=== PATIENT | female | born 1950 | race Hispanic/Latino ===

== ENCOUNTER 2018-06-04 11:27 | Emergency (ER) | payer MEDICARE ==
[~2018-06-04] VITALS: Ht 160 cm; Wt 83.1 kg
[2018-06-04 12:44] VITALS: BP 144/81
[2018-06-04] MEDS ORDERED: HYDROCODONE/APAP 5MG-325MG TAB PO ONE (13:15)
== END 2018-06-04 13:36 | disposition home or self-care (01) ==
LOC: FSED 11:27
DX: S42.492A Other displaced fracture of lower end of left humerus, initial encounter for closed fracture (principal); S00.511A Abrasion of lip, initial encounter; M25.562 Pain in left knee; W01.0XXA Fall on same level from slipping, tripping and stumbling without subsequent striking against object, initial encounter; Y93.01 Activity, walking, marching and hiking; I10 Essential (primary) hypertension; E78.5 Hyperlipidemia, unspecified
CPT/HCPCS: 99284

== ENCOUNTER → 2018-06-17 | Day surgery (SDC) | payer MEDICARE ==
[2018-06-16 13:52] LABS: BASOPHILS % 0.5 % (0.0-1.0); EOSINOPHILS # (AUTO) 0.1 (0.0-0.4); EOSINOPHILS % 1.5 % (0.0-6.0); HEMATOCRIT 38.3 % (34.2-44.1); HEMOGLOBIN 13.1 g/dL (12.0-16.0); LYMPHOCYTES # (AUTO) 2.3 (1.0-3.2); LYMPHOCYTES % 28.5 % (18.0-39.1); MEAN CORPUSCULAR HEMOGLOBIN 30.3 pg (28-32); MEAN CORPUSCULAR HGB CONC 34.2 g/dL (31-35); MEAN CORPUSCULAR VOLUME 88.7 fL (81-99); MONOCYTES # (AUTO) 0.7 (0.2-0.8); MONOCYTES % 8.4 % (4.4-11.3); NEUTROPHILS % 60.9 % (38.7-80.0); PLATELET COUNT 148 x10e3/uL (140-360); RED BLOOD COUNT 4.32 x10e6/uL (3.6-5.1); RED CELL DISTRIBUTION WIDTH 12.6 % (11.7-14.4)
[2018-06-16 14:11] LABS: ANION GAP 12.5 mmol/L (8-16); CALCIUM 10.2 mg/dL (8.4-10.2); CREATININE, SERUM 0.96 mg/dL (0.57-1.11); POTASSIUM 4.5 mmol/L (3.5-5.1)
--- NOTE | 2018-06-16 14:29 | Diagnostic Imaging Report ---
PROCEDURE: Frontal and lateral views of the chest. COMPARISON: None. INDICATIONS: preop surgery FINDINGS: Lines/tubes: None. Lungs: The lungs are well inflated and clear. There is no evidence of pneumonia or pulmonary edema. Pleura: There is no pleural effusion or pneumothorax. Heart and mediastinum: The heart and the mediastinum are normal. Bones: No acute bony abnormality. IMPRESSION: 1. No acute cardiopulmonary disease. Dictated by: Obi Leach M.D. on 06/16/2018 at 14:34 Electronically approved by: Obi Leach M.D. on 06/16/2018 at 14:34
[~2018-06-17] MED LIST: BACITRACIN 50,000 UNIT VIAL ONE; BETIMOL5 M1 OP; BUPIVACAINE 0.5%/EPI 30 ML SDV INJ ONE; BUPIVACAINE HCL 0.5% INJ 30 ML VIAL INJ ONE; CEFAZOLIN SOD 1 GM VIAL ONE; DEXAMETHASONE SOD PHOS INJ 4 MG/ML VIAL ONE; FENTANYL CITRATE/PF 100MCG/2 ML INJ ONE; GLYCOPYRROLATE INJ 1MG/ 5 ML SYR ONE; LATANOPROST2.5 ML OP; LIDOCAINE 2%/ EPINEPHRINE 20ML MDV ONE; LIDOCAINE HCL 2% LOCAL INJ 5 ML SDV VIAL INJ ONE; LISINOPRIL-HCT1 EAC1 PO; MIDAZOLAM HCL 2 MG/2 ML VIAL ONE; MUPIROCIN 2% OINT 22 GM TUBE ONE; NEOSTIGMINE 5 MG/5ML SYR ONE; OMEPRAZOLE40 MG PO; ONDANSETRON HCL INJ 2 MG/ML VIAL ONE; PRAVASTATIN SOD80 MG PO; PROPOFOL IV EMULSION 10 MG/ML 20 ML VIAL ONE; ROCURONIUM BROMIDE 10 MG/ML 5ML VIAL ONE; ROPIVACAINE 0.5% 5 MG/ML 30 ML SDV ONE; SEVOFLURANE INHAL SOLN 250 ML PEN BTL ONE
--- NOTE | 2018-06-17 12:26 | Diagnostic Imaging Report ---
PROCEDURE:X-RAY LEFT ELBOW, TWO VIEWS COMPARISON:Outside hospital left elbow radiographs 06/04/18. INDICATIONS:POST OPERATIVE LEFT ELBOW SURGERY FINDINGS: Exam somewhat limited by portable technique. Post surgical changes status post interval fixation of the lateral epicondyle fracture with three threaded screws. Subcutaneous air from recent surgery is present. Alignment appears anatomic. No additional fractures identified. On the lateral projection, prior screw tract is noted. CONCLUSION: Post surgical changes status post interval fixation of lateral epicondyle fracture with temple of anatomic alignment. Dictated by: SANTY JAY M.D. on 06/17/2018 at 12:31 Electronically approved by: SANTY JAY M.D. on 06/17/2018 at 12:31
--- NOTE | 2018-06-18 14:01 | Operative Report ---
DATE OF PROCEDURE: June 17, 2018 MANAGER [employer] RELATIONS: Lance Alaniz PA-C The patient was brought to the operating room for induction of anesthesia. Throughout this case, my PA's assistance was necessary for retraction of soft tissue and positioning of the extremity. This allows for efficient and technically successful execution of the operation and is considered medically necessary. PREOPERATIVE DIAGNOSIS: Left elbow capitellar fracture. POSTOPERATIVE DIAGNOSIS: Left elbow capitellar fracture. PROCEDURE: Open reduction and internal fixation, left elbow capitellum. INDICATIONS: The patient is a 67-year-old lady with a completely displaced left elbow capitellar fracture. The findings and options have been discussed. She had a slightly delayed presentation and then wanted to obtain a 2nd opinion. We now plan on open reduction and internal fixation. The risks and benefits and expectations of some limitation of motion going forward have been explained. She states she understands and wishes to proceed. DESCRIPTION OF PROCEDURE: The patient was brought to the operating room and placed under general anesthetic. She received prophylactic antibiotics in the holding area. She was positioned in the floppy right lateral decubitus position. Her left upper extremity was prepped and draped in a sterile manner. A preoperative time out was performed. A tourniquet placed on the upper arm was inflated to 250 mmHg and after exsanguinating the arm a curvilinear incision for a lateral approach to the left elbow was made. Hemostasis was obtained with electrocautery. Abundant subcutaneous fatty tissue was encountered. The extensor origin was elevated off of the lateral epicondyle. The lateral aspect of the joint was exposed. A closed reduction had been performed and the capitellum was surprisingly adjacent to its anatomic position. This was carefully reduced and fixed with 3 cannulated headless compression screws. Intraoperative x-rays confirmed anatomic reduction and good positioning of the hardware. Minimal stripping of soft tissue of the remaining capitellar attachments was performed. The wound and the elbow tell joint were thoroughly irrigated. The lateral structures were closed with 0 Vicryl. The skin was closed subcuticular Vicryl and nylon. A posterior splint was applied. The patient was extubated and transported to the recovery room in stable condition. Prior to leaving the operating room, a lateral x-ray was taken which showed reduction of the radial capitellar joint. Job#: [id number]
== END | disposition home or self-care (01) ==
LOC: OR 06:47
PROVIDERS: ATTEND Specialist
DX: S42.452A Displaced fracture of lateral condyle of left humerus, initial encounter for closed fracture (principal); E78.00 Pure hypercholesterolemia, unspecified; R03.0 Elevated blood-pressure reading, without diagnosis of hypertension; W18.39XA Other fall on same level, initial encounter; Y93.01 Activity, walking, marching and hiking; Y92.096 Garden or yard of other non-institutional residence as the place of occurrence of the external cause; Z01.810 Encounter for preprocedural cardiovascular examination; Z01.812 Encounter for preprocedural laboratory examination; Z01.818 Encounter for other preprocedural examination; Z68.32 Body mass index [BMI] 32.0-32.9, adult
CPT/HCPCS: 24586; 36415; 71046; 73070; 76001; 80048; 85025; 93005; J0690; J1100; J2001 ×2; J2250; J2405; J2795; J3490

== ENCOUNTER → 2020-01-28 | Outpatient (CLI) | payer MEDICARE ==
[~2020-01-28] MED LIST changes: -BACITRACIN 50,000 UNIT VIAL ONE; -BUPIVACAINE 0.5%/EPI 30 ML SDV INJ ONE; -BUPIVACAINE HCL 0.5% INJ 30 ML VIAL INJ ONE; -CEFAZOLIN SOD 1 GM VIAL ONE; -DEXAMETHASONE SOD PHOS INJ 4 MG/ML VIAL ONE; +DIGOXIN INJ 0.25 MG/ML 2 ML AMP IV ONE; +DIGOXIN INJ 0.25 MG/ML 2 ML AMP IV PRN; -FENTANYL CITRATE/PF 100MCG/2 ML INJ ONE; -GLYCOPYRROLATE INJ 1MG/ 5 ML SYR ONE; -LIDOCAINE 2%/ EPINEPHRINE 20ML MDV ONE; -LIDOCAINE HCL 2% LOCAL INJ 5 ML SDV VIAL INJ ONE; +METOPROLOL TARTRATE INJ 1 MG/ML VIAL IV ONE; +METOPROLOL TARTRATE INJ 1 MG/ML VIAL ONE; -MIDAZOLAM HCL 2 MG/2 ML VIAL ONE; -MUPIROCIN 2% OINT 22 GM TUBE ONE; -NEOSTIGMINE 5 MG/5ML SYR ONE; -ONDANSETRON HCL INJ 2 MG/ML VIAL ONE; -PROPOFOL IV EMULSION 10 MG/ML 20 ML VIAL ONE; +REGADENOSON 0.4 MG/5 ML SYR IV ONE; -ROCURONIUM BROMIDE 10 MG/ML 5ML VIAL ONE; -ROPIVACAINE 0.5% 5 MG/ML 30 ML SDV ONE; -SEVOFLURANE INHAL SOLN 250 ML PEN BTL ONE
--- NOTE | 2020-01-28 17:33 | Myoview Stress Test ---
DATE OF STUDY: 01/28/2020 07:43:00 Stress Test - Treadmill ONLY PROCEDURE TITLE: Rest/stress single isotope SPECT imaging with pharmacologic stress and gated SPECT imaging. INDICATION: Chest pain. PROCEDURE IN DETAIL: The patient performed treadmill exercise using a Robin protocol exercising for 5 minutes and 1 seconds to stage I and completing estimated workload of 4.6 metabolic equivalents (METs). The heart rate was 66 beats per minute at rest and increased to 216 beats per minute at peak exercise, which was 143% of the maximum predicted heart rate. The resting blood pressure was 137/86 mmHg and increased to 147/101 mmHg, which is a normal response. The resting electrocardiogram demonstrated normal sinus rhythm. There were no ST-segment changes suggestive of myocardial ischemia; however, the patient developed atrial fibrillation with rapid ventricular response during exercise for which the patient was given a total of 30 mg IV metoprolol as well as 500 mcg of IV digoxin with improvement in heart rate. Next, myocardial perfusion imaging was performed at rest following the injection of 11 mCi of tetrofosmin. At peak pharmacologic effect, the patient was injected with 33 mCi of tetrofosmin. Gated post-stress tomographic imaging was performed. FINDINGS: The overall quality of study is fair. Left ventricular cavity is noted to be normal size on the rest and stress studies. SPECT images demonstrate homogeneous tracer distribution throughout the myocardium. Gated SPECT imaging reveals normal myocardial thickening and wall motion. The left ventricular ejection fraction was calculated to be 58%. IMPRESSION: Myocardial perfusion imaging is normal. Overall left ventricular systolic function is normal without regional wall motion abnormalities. Carmel Almeida MD ABS/MODL /[id number]
== END ==
LOC: NM 07:30
PROVIDERS: ATTEND Internal Medicine Cardiovascular Disease
DX: R07.9 Chest pain, unspecified (principal)
CPT/HCPCS: 78452; 93017; A9502

== ENCOUNTER → 2021-01-30 | Day surgery (SDC) | payer MEDICARE ==
[2021-01-25 10:19] LABS: EOSINOPHILS # (AUTO) 0.1 (0.0-0.4); EOSINOPHILS % 1.9 % (0.0-6.0); HEMATOCRIT 39.5 % (34.2-44.1); HEMOGLOBIN 12.8 g/dL (12.0-16.0); LYMPHOCYTES # (AUTO) 1.8 (1.0-3.2); LYMPHOCYTES % 43.6 % (18.0-39.1); MEAN CORPUSCULAR HEMOGLOBIN 29.5 pg (28-32); MEAN CORPUSCULAR HGB CONC 32.4 g/dL (31-35); MONOCYTES # (AUTO) 0.4 (0.2-0.8); MONOCYTES % 10.5 % (4.4-11.3); NEUTROPHILS # (AUTO) 1.8 (2.1-6.9); PLATELET COUNT 217 x10e3/uL (140-360); RED BLOOD COUNT 4.34 x10e6/uL (3.6-5.1); RED CELL DISTRIBUTION WIDTH 13.2 % (11.7-14.4)
[2021-01-25 10:49] LABS: ALBUMIN/GLOBULIN RATIO 1.1 (0.8-2.0); ANION GAP 14.7 mmol/L (8-16); CALCIUM 9.5 mg/dL (8.4-10.2); CREATININE, SERUM 1.26 mg/dL (0.57-1.11); POTASSIUM 3.7 mmol/L (3.5-5.1)
[~2021-01-30] VITALS: Ht 160 cm; Wt 86.2 kg
[~2021-01-30] MED LIST changes: +AMIODARONE HCL200 MG PO; +BENZOCAINE 20% SPR 60 ML CAN ONE; +BRIMONIDINE TART5 ML OS; +CRESTOR40 MG PO; -DIGOXIN INJ 0.25 MG/ML 2 ML AMP IV ONE; -DIGOXIN INJ 0.25 MG/ML 2 ML AMP IV PRN; +ELIQUIS5 MG PO; +FENTANYL CITRATE/PF 100MCG/2 ML INJ ONE; +METOPROLOL SUCC25 MG PO; -METOPROLOL TARTRATE INJ 1 MG/ML VIAL IV ONE; -METOPROLOL TARTRATE INJ 1 MG/ML VIAL ONE; +MIDAZOLAM HCL 2 MG/2 ML VIAL ONE; +PROPOFOL IV EMULSION 10 MG/ML 20 ML VIAL ONE; -REGADENOSON 0.4 MG/5 ML SYR IV ONE; +SODIUM CHLORIDE 0.9% 1000ML 1,000 ML ONE
[2021-01-30 09:31] VITALS: BP 111/64
[2021-01-30 09:45] VITALS: BP 113/60
[2021-01-30 10:00] VITALS: BP 108/76
== END | disposition home or self-care (01) ==
LOC: CATH LAB 07:03
PROVIDERS: ATTEND Internal Medicine Cardiovascular Disease
DX: I48.0 Paroxysmal atrial fibrillation (principal); I49.3 Ventricular premature depolarization; E78.00 Pure hypercholesterolemia, unspecified; R00.2 Palpitations; K21.9 Gastro-esophageal reflux disease without esophagitis; I12.9 Hypertensive chronic kidney disease with stage 1 through stage 4 chronic kidney disease, or unspecified chronic kidney disease; N18.9 Chronic kidney disease, unspecified; Z01.812 Encounter for preprocedural laboratory examination; Z20.822 Contact with and (suspected) exposure to COVID-19; Z79.02 Long term (current) use of antithrombotics/antiplatelets; Z79.82 Long term (current) use of aspirin; Z68.35 Body mass index [BMI] 35.0-35.9, adult; Z95.0 Presence of cardiac pacemaker; Z82.49 Family history of ischemic heart disease and other diseases of the circulatory system
CPT/HCPCS: 36415; 80053; 85025; 93320; 93325; J2250; J2704; J3010; J7030; U0002; 93307; 93312

== ENCOUNTER 2023-04-08 05:37 | Day surgery (SDC) | payer MEDICARE ==
[2023-04-05 10:03] LABS: BASOPHILS % 0.5 % (0.0-1.0); EOSINOPHILS # (AUTO) 0.1 (0.0-0.4); EOSINOPHILS % 1.6 % (0.0-6.0); HEMATOCRIT 38.6 % (34.2-44.1); HEMOGLOBIN 12.7 g/dL (12.0-16.0); LYMPHOCYTES % 30.8 % (18.0-39.1); MEAN CORPUSCULAR HEMOGLOBIN 29.7 pg (28-32); MEAN CORPUSCULAR HGB CONC 32.9 g/dL (31-35); MEAN CORPUSCULAR VOLUME 90.4 fL (81-99); MONOCYTES # (AUTO) 0.6 (0.2-0.8); MONOCYTES % 9.6 % (4.4-11.3); NEUTROPHILS # (AUTO) 3.6 (2.1-6.9); NEUTROPHILS % 57.2 % (38.7-80.0); PLATELET COUNT 195 x10e3/uL (140-360); RED BLOOD COUNT 4.27 x10e6/uL (3.6-5.1); RED CELL DISTRIBUTION WIDTH 13.3 % (11.7-14.4)
[2023-04-05 10:22] LABS: ANION GAP 15.3 mmol/L (8-16); CALCIUM 9.4 mg/dL (8.4-10.2); CREATININE, SERUM 0.97 mg/dL (0.57-1.11); POTASSIUM 3.3 mmol/L (3.5-5.1)
[~2023-04-08 05:37] MED LIST changes: -BENZOCAINE 20% SPR 60 ML CAN ONE; -FENTANYL CITRATE/PF 100MCG/2 ML INJ ONE; -MIDAZOLAM HCL 2 MG/2 ML VIAL ONE; +OLMESARTAN-HCT1 EACH PO; -PROPOFOL IV EMULSION 10 MG/ML 20 ML VIAL ONE; -SODIUM CHLORIDE 0.9% 1000ML 1,000 ML ONE
[2023-04-08] MEDS ORDERED: CELECOXIB 200 MG CAP ONE (06:11)
[2023-04-08] MEDS ORDERED: GABAPENTIN 300 MG CAP ONE (06:12)
[2023-04-08] MEDS ORDERED: LACTATED RINGER'S 1,000 ML ONE (06:12)
[2023-04-08] MEDS ORDERED: CEFAZOLIN SODIUM 2 GM ONE (06:12)
[2023-04-08] MEDS ORDERED: DEXAMETHASONE SOD PHOS 10 MG/1 ML VIAL ONE (06:12)
[2023-04-08] MEDS ORDERED: SODIUM CHLORIDE 0.9% 250ML 250 ML ONE (06:16)
[2023-04-08] MEDS ORDERED: Vancomycin IV 1,000 MG ONE (06:16)
[2023-04-08] MEDS ORDERED: TRANEXAMIC ACID 20 ML ONE (06:16)
[2023-04-08] MEDS ORDERED: Vancomycin IV 500 MG ONE (06:29)
[2023-04-08] MEDS ORDERED: ROPIVACAINE 246.25 MG, EPINEPHRINE HCL 1:1000 1ML 0.5 MG, CLONIDINE HCL 0.08 MG, KETORO... INJ ONE ×5 (07:30)
[2023-04-08] MEDS ORDERED: HYDROMORPHONE 1MG/1ML INJ ONE (07:40)
[2023-04-08] MEDS ORDERED: DIPHENHYDRAMINE HCL INJ 50 MG/ML VIAL IV PRN (08:15)
[2023-04-08] MEDS ORDERED: ACETAMINOPHEN 650 MG SUPP PR PRN (08:15)
[2023-04-08] MEDS ORDERED: HYDROCODONE/APAP 5MG-325MG TAB PO PRN (08:15)
[2023-04-08] MEDS ORDERED: ONDANSETRON HCL INJ 2MG/ML 2ML 2 MG/ML VIAL IV PRN (08:15)
[2023-04-08] MEDS ORDERED: DOCUSATE SODIUM 100 MG CAP PO PRN (08:15)
[2023-04-08] MEDS ORDERED: HYDROCODONE/APAP 7.5MG-325MG 1 EA TAB PO PRN (08:15)
[2023-04-08] MEDS ORDERED: SODIUM CHLORIDE 0.9% 1000ML 1,000 ML IV SCH (08:15)
[2023-04-08 08:25] VITALS: TEMP 98.8
[2023-04-08] MEDS ORDERED: CELECOXIB 100 MG CAP PO SCH (09:00)
[2023-04-08 09:50] VITALS: BP 112/48; PULSE 60; RESP 18; O2SAT 97
[2023-04-08] MEDS ORDERED: HYDROCODON-ACE1 EA12 PO (11:37)
[2023-04-08] MEDS ORDERED: MIDAZOLAM HCL 2 MG/2 ML VIAL ONE (12:18)
[2023-04-08] MEDS ORDERED: FENTANYL CITRATE/PF 100MCG/2 ML INJ ONE (12:18)
[2023-04-08] MEDS ORDERED: ROPIVACAINE 0.5% 5 MG/ML 30 ML SDV ONE (12:57)
[2023-04-08] MEDS ORDERED: DEXAMETHASONE SOD PHOS INJ 4 MG/ML SDV ONE (13:56)
[2023-04-08] MEDS ORDERED: EPHEDRINE SULFATE INJ 50 MG/ML VIAL ONE (13:56)
[2023-04-08] MEDS ORDERED: LIDOCAINE HCL 2% LOCAL INJ 5 ML SDV VIAL INJ ONE (13:56)
[2023-04-08] MEDS ORDERED: SEVOFLURANE INHAL SOLN 250 ML PEN BTL ONE (13:56)
[2023-04-08] MEDS ORDERED: POVIDONE IODINE 0.05% 0.05 % ML PO ONE (13:56)
[2023-04-08] MEDS ORDERED: ONDANSETRON HCL INJ 2MG/ML 2ML 2 MG/ML VIAL ONE (13:56)
[2023-04-08] MEDS ORDERED: PROPOFOL IV EMULSION 10 MG/ML 20 ML VIAL ONE (13:56)
[2023-04-09] MEDS ORDERED: ACETAMINOPHEN 1000 MG/100 ML IV PRN (08:15)
== END 2023-04-08 12:15 | disposition home health service (06) ==
LOC: OR 05:37
PROVIDERS: ATTEND Specialist
DX: M17.12 Unilateral primary osteoarthritis, left knee (principal); I10 Essential (primary) hypertension; I51.9 Heart disease, unspecified; I48.91 Unspecified atrial fibrillation; K21.9 Gastro-esophageal reflux disease without esophagitis; Z01.810 Encounter for preprocedural cardiovascular examination; Z01.812 Encounter for preprocedural laboratory examination; Z01.818 Encounter for other preprocedural examination; Z79.02 Long term (current) use of antithrombotics/antiplatelets; Z79.899 Other long term (current) drug therapy; Z95.0 Presence of cardiac pacemaker
CPT/HCPCS: 27447; 36415; 71046; 73560; 80048; 85025; 86850; 86900; 86920; 93005; 97110; 97116; 97161; C1713; J0171; J1100 ×2; J1170; J1885; J2001; J2405; J2704; J2795; J3370; J7050; J7121; J2250

== ENCOUNTER 2023-12-16 05:43 | Observation (INO) | payer MEDICARE ==
[2023-12-13 11:34] LABS: BASOPHILS % 0.3 % (0.0-1.0); EOSINOPHILS # (AUTO) 0.1 (0.0-0.4); HEMATOCRIT 38.4 % (34.2-44.1); HEMOGLOBIN 12.4 g/dL (12.0-16.0); LYMPHOCYTES # (AUTO) 2.1 (1.0-3.2); LYMPHOCYTES % 35.6 % (18.0-39.1); MEAN CORPUSCULAR HEMOGLOBIN 29.5 pg (28-32); MEAN CORPUSCULAR HGB CONC 32.3 g/dL (31-35); MEAN CORPUSCULAR VOLUME 91.2 fL (81-99); MONOCYTES # (AUTO) 0.6 (0.2-0.8); MONOCYTES % 10.6 % (4.4-11.3); NEUTROPHILS % 52.3 % (38.7-80.0); PLATELET COUNT 219 x10e3/uL (140-360); RED BLOOD COUNT 4.21 x10e6/uL (3.6-5.1); RED CELL DISTRIBUTION WIDTH 13.3 % (11.7-14.4); WHITE BLOOD COUNT 5.76 x10e3/uL (4.8-10.8)
[2023-12-13 11:56] LABS: ANION GAP 12.8 mmol/L (8-16); CALCIUM 9.9 mg/dL (8.4-10.2); CREATININE, SERUM 1.1 mg/dL (0.57-1.11); POTASSIUM 3.8 mmol/L (3.5-5.1)
[~2023-12-16 05:43] MED LIST changes: +HYDROCODON-ACE1 EA12 PO; +TYLENOL ARTHRITIS PO
[2023-12-16] MEDS ORDERED: LACTATED RINGER'S 1,000 ML ONE (05:58)
[2023-12-16] MEDS ORDERED: GABAPENTIN 300 MG CAP ONE (05:58)
[2023-12-16] MEDS ORDERED: CELECOXIB 200 MG CAP ONE (05:58)
[2023-12-16] MEDS ORDERED: CEFAZOLIN SODIUM 2 GM ONE (05:58)
[2023-12-16] MEDS ORDERED: DEXAMETHASONE SOD PHOS 10 MG/1 ML VIAL ONE (05:58)
[2023-12-16] MEDS ORDERED: SODIUM CHLORIDE 0.9% 500ML 500 ML ONE (06:25)
[2023-12-16] MEDS ORDERED: Vancomycin IV 1,000 MG ONE (06:25)
[2023-12-16] MEDS ORDERED: TRANEXAMIC ACID 20 ML ONE (06:26)
[2023-12-16] MEDS ORDERED: ROPIVACAINE 246.25 MG, EPINEPHRINE HCL 1:1000 1ML 0.5 MG, CLONIDINE HCL 0.08 MG, KETORO... INJ ONE ×5 (08:00)
[2023-12-16] MEDS ORDERED: DIPHENHYDRAMINE HCL INJ 50 MG/ML VIAL IV PRN (08:30)
[2023-12-16] MEDS ORDERED: ONDANSETRON HCL INJ 2MG/ML 2ML 2 MG/ML VIAL IV PRN (08:30)
[2023-12-16] MEDS ORDERED: HYDROCODONE/APAP 5MG-325MG TAB PO PRN (08:30)
[2023-12-16] MEDS ORDERED: SODIUM CHLORIDE 0.9% 1000ML 1,000 ML IV SCH (08:30)
[2023-12-16] MEDS ORDERED: DOCUSATE SODIUM 100 MG CAP PO PRN (08:30)
[2023-12-16] MEDS ORDERED: HYDROCODONE/APAP 7.5MG-325MG 1 EA TAB PO PRN (08:30)
[2023-12-16] MEDS ORDERED: CELECOXIB 100 MG CAP PO SCH (09:00)
[2023-12-16] MEDS: FENTANYL CITRATE/PF 100MCG/2 ML INJ ONE ×4 (09:17→09:32)
[2023-12-16 10:50] VITALS: BP 129/62; PULSE 63; RESP 15; O2SAT 99
[2023-12-16] MEDS ORDERED: HYDROCODONE/APAP 7.5MG-325MG 1 EA TAB ONE (10:52)
[2023-12-16] MEDS ORDERED: PROPOFOL IV EMULSION 10 MG/ML 20 ML VIAL ONE (11:49)
[2023-12-16] MEDS ORDERED: DEXAMETHASONE SOD PHOS INJ 4 MG/ML SDV ONE (11:49)
[2023-12-16] MEDS ORDERED: LIDOCAINE HCL 2% LOCAL INJ 5 ML SDV VIAL INJ ONE (11:49)
[2023-12-16] MEDS ORDERED: PHENYLEPHRINE HCL 1% 10 MG/ML VIAL ONE (11:49)
[2023-12-16] MEDS ORDERED: ONDANSETRON HCL INJ 2MG/ML 2ML 2 MG/ML VIAL ONE (11:49)
[2023-12-16] MEDS ORDERED: DEXMEDETOMIDINE HCL 200 MCG/2 ML VIAL ONE (11:49)
[2023-12-16] MEDS ORDERED: FENTANYL CITRATE/PF 100MCG/2 ML INJ ONE ×2 (12:06→13:26)
[2023-12-16] MEDS ORDERED: EPINEPHRINE HCL 1:1000 1ML 1 MG/ML AMP ONE (13:20)
[2023-12-16] MEDS ORDERED: ROPIVACAINE 0.5% 5 MG/ML 30 ML SDV ONE (13:20)
[2023-12-16] MEDS ORDERED: MIDAZOLAM HCL 2 MG/2 ML VIAL ONE (13:26)
[2023-12-17] MEDS ORDERED: ACETAMINOPHEN 1000 MG/100 ML IV PRN (08:30)
== END 2023-12-16 11:15 | disposition home health service (06) ==
LOC: OR 05:43 → PACU V 08:27
PROVIDERS: ADMIT Specialist; ATTEND Specialist
DX: M17.11 Unilateral primary osteoarthritis, right knee (principal); Z96.652 Presence of left artificial knee joint; I11.9 Hypertensive heart disease without heart failure; E78.00 Pure hypercholesterolemia, unspecified; I49.3 Ventricular premature depolarization; I48.0 Paroxysmal atrial fibrillation; Z79.01 Long term (current) use of anticoagulants; K21.9 Gastro-esophageal reflux disease without esophagitis; Z71.3 Dietary counseling and surveillance; Z68.34 Body mass index [BMI] 34.0-34.9, adult; Z01.812 Encounter for preprocedural laboratory examination; Z01.810 Encounter for preprocedural cardiovascular examination; Z79.899 Other long term (current) drug therapy; Z95.0 Presence of cardiac pacemaker
CPT/HCPCS: 27447; 36415; 73560; 80048; 85025; 86850; 86900; 93005; 97110; 97116; 97161; C1713 ×2; C1776 ×3; G0378; J0171; J1100 ×2; J1885; J2001; J2250; J2371; J2405; J2704; J2795; J3010; J3370; J7040; J7121

== ENCOUNTER 2024-02-25 08:52 | Outpatient (RCR) | payer MEDICARE | END 2024-03-24 | LOC: PT 08:52 | PROVIDERS: ATTEND Physician Assistant | DX: Z47.1 Aftercare following joint replacement surgery (principal); Z96.651 Presence of right artificial knee joint ==

== ENCOUNTER → 2024-08-27 | Day surgery (SDC) | payer MEDICARE ==
[2024-08-25 14:37] LABS: BASOPHILS % 0.6 % (0.0-1.0); EOSINOPHILS # (AUTO) 0.1 (0.0-0.4); EOSINOPHILS % 1.1 % (0.0-6.0); HEMATOCRIT 37.5 % (34.2-44.1); LYMPHOCYTES # (AUTO) 1.1 (1.0-3.2); LYMPHOCYTES % 24.2 % (18.0-39.1); MEAN CORPUSCULAR HEMOGLOBIN 29.2 pg (28-32); MEAN CORPUSCULAR VOLUME 91.2 fL (81-99); MONOCYTES # (AUTO) 0.6 (0.2-0.8); MONOCYTES % 12.8 % (4.4-11.3); NEUTROPHILS # (AUTO) 2.8 (2.1-6.9); NEUTROPHILS % 61.1 % (38.7-80.0); PLATELET COUNT 209 x10e3/uL (140-360); RED BLOOD COUNT 4.11 x10e6/uL (3.6-5.1); RED CELL DISTRIBUTION WIDTH 13.2 % (11.7-14.4); WHITE BLOOD COUNT 4.62 x10e3/uL (4.8-10.8)
[~2024-08-27] MED LIST changes: +PROPOFOL IV EMULSION 10 MG/ML 20 ML VIAL ONE
[2024-08-27] MEDS: LACTATED RINGER'S 1,000 ML ONE (07:48)
[2024-08-27 10:07] VITALS: TEMP 97.1
[2024-08-27 10:45] VITALS: BP 137/76; PULSE 67; RESP 16; O2SAT 98
== END | disposition home or self-care (01) ==
LOC: OR 06:51
PROVIDERS: ATTEND Internal Medicine Gastroenterology
DX: K29.50 Unspecified chronic gastritis without bleeding (principal); Z86.0100 Personal history of colon polyps, unspecified; K31.7 Polyp of stomach and duodenum; K31.89 Other diseases of stomach and duodenum; K44.9 Diaphragmatic hernia without obstruction or gangrene; K21.9 Gastro-esophageal reflux disease without esophagitis; K57.30 Diverticulosis of large intestine without perforation or abscess without bleeding; K64.8 Other hemorrhoids; I10 Essential (primary) hypertension; Z78.9 Other specified health status; E78.5 Hyperlipidemia, unspecified; I49.9 Cardiac arrhythmia, unspecified; E66.01 Morbid (severe) obesity due to excess calories; Z01.810 Encounter for preprocedural cardiovascular examination; Z01.812 Encounter for preprocedural laboratory examination; Z79.02 Long term (current) use of antithrombotics/antiplatelets; Z79.899 Other long term (current) drug therapy; Z68.35 Body mass index [BMI] 35.0-35.9, adult; Z95.0 Presence of cardiac pacemaker
CPT/HCPCS: 36415; 43239; 45378; 85025; 88305; 88342; 93005; J2704; J7121